=== PATIENT | female | born 1950 | race Caucasian/White ===

== ENCOUNTER 2019-06-19 13:52 | Outpatient (CLI) | payer MEDICARE, SELFPAY ==
--- NOTE | ~2019-06-19 | MM_ITS ---
EXAMINATION: MM screening alcon BI w sam HISTORY: Screening mammogram TECHNIQUE: Craniocaudal and mediolateral oblique 3-D tomosynthesis images were obtained and synthetic 2-D images were generated. CAD analysis was submitted and interpreted. COMPARISON: No prior mammogram is available for comparison at this institution. BREAST PARENCHYMAL COMPOSITION: 1 FINDINGS: There is no evidence of suspicious mass, calcification, or architectural distortion to sugg est malignancy in either breast. There has been no suspicious interval change. IMPRESSION: 1. No mammographic evidence of malignancy. 2. Recommend routine screening mammography in one year. BI-RADS Category 1: Negative Reviewed, dictated and finalized at location A.
== END 2019-06-19 13:53 | disposition home or self-care (01) ==
PROVIDERS: PCP Internal Medicine; Visit Provider Internal Medicine
DX: Z12.31 Encounter for screening mammogram for malignant neoplasm of breast (principal)
CPT/HCPCS: 77063; 77067

== ENCOUNTER 2020-11-26 02:27 | Day surgery (SDC) | payer MEDICARE, SELFPAY ==
[2020-11-16 14:56] VITALS: BMI 40.8
[2020-11-26 06:07] VITALS: BP 137/80; PULSE 104; RESP 18; TEMP 35.9; O2SAT 98; BMI 40.1
[2020-11-26] MEDS: LACTATED RINGERS 1,000 ML 150 ML IV CONT (06:34)
[2020-11-26 06:36] LABS: Glucose Point of Care 126 mg/dl (65-105)
--- NOTE | 2020-11-26 07:18 | WPDANESEPPF ---
Anes - Initial Pre Proc Eval Procedure: Operation Date: 11/26/20 07:30 Proposed Procedures p Screening Colonoscopy - Jay Gonzales MD Date/Time: 11/26/20 07:18 Surgeon: Jay Gonzales MD Pre Op Diagnosis: hx of colon polyps Patient Data Age: 70 Gender: F Height: 1.63 m Weight: 106 kg Last Vital Signs Temp 96.6 F L 11/26/20 06:07 Pulse 104 H 11/26/20 06:07 Resp 18 11/26/20 06:07 BP 137/80 11/26/20 06:07 Pulse Ox 98 11/26/20 06:07 Allergies Allergy/AdvReac Type Severity Reaction Status Date / Time niacin Allergy Unknown Other Verified 11/26/20 06:20 niacinamide Allergy Unknown Other Verified 11/26/20 06:20 Home Medications Medication Instructions Recorded Confirmed Type aspirin 81 mg tablet,delayed 81 mg PO DAILY 02/19/19 11/26/20 History release multivit with 1 tablet PO DAILY 02/19/19 11/26/20 History filomkuw-dyke-IX-lutein 8 mg iron-400 mcg-300 mcg tablet brimonidine 0.2 %-timolol 0.5 % 1 drop EACH EYE Q12H 06/18/19 11/26/20 History eye drops lorazepam 0.5 mg tablet 0.5 mg PO TID PRN #90 tablet 06/18/19 11/26/20 Rx nystatin 100,000 unit/gram topical 1 applic TOPICAL BID #15 gm 08/07/19 11/26/20 Rx cream triamcinolone acetonide 0.1 % 1 applic TOPICAL BID #15 gm 08/07/19 11/26/20 Rx topical cream rosuvastatin 10 mg tablet 10 mg PO DAILY #90 tablet 12/11/19 11/26/20 Rx subcutaneous insulin pump #1 each 12/29/19 11/26/20 History icosapent ethyl 1 gram capsule 2 g PO BID 02/13/20 11/26/20 History furosemide 40 mg tablet 40 mg PO QAM #90 tablet 03/16/20 11/26/20 Rx olmesartan 40 mg tablet 40 mg PO DAILY #90 tablet 03/17/20 11/26/20 Rx Contour Next Test Strips #400 ea NS 04/05/20 11/26/20 Rx Microlet Lancet #400 ea NS 04/05/20 11/26/20 Rx glucosamine sulfate 500 mg tablet 2,000 mg PO BID tablet 04/05/20 11/26/20 History betamethasone dipropionate 0.05 % 1 applic TOPICAL BID #15 gm 04/30/20 11/26/20 Rx topical cream insulin lispro 100 unit/mL 150 unit CONTINUOUS SUBCUTANEOUS 05/17/20 11/26/20 Rx subcutaneous solution INFUSION DAILY #30 ml Ozempic 0.5 mg SUB-Q WEEKLY 30 Days #1.5 09/21/20 11/26/20 Rx ml NS potassium chloride 10 mEq See Rx Instructions .ROUTE 10/11/20 11/26/20 Rx capsule,extended release .COMPLEX #90 cap metformin 1,000 mg tablet See Rx Instructions .ROUTE 11/18/20 11/26/20 Rx .COMPLEX #225 tablet Laboratory Tests 11/26/20 06:28 POC Capillary Glucose 126 mg/dl H mg/dl (65-105) Patient hx anesthesia problems: none Family hx anesthesia problems: none PMFSH Past Medical History Medical History (Updated 08/18/20 @ 10:00 by Effie Ludwig MD) Abnormal Pap smear of cervix Allergies Anxiety Benign essential hypertension Body mass index (BMI) 40.0-44.9, adult Colon cancer screening Encounter for Medicare annual wellness exam Encounter for routine adult health examination without abnormal findings Encounter for screening mammogram for malignant neoplasm of breast Glaucoma Hx of colonic polyps Lymphedema On buttermaker drug therapy Stasis dermatitis Type 2 diabetes mellitus without complication, with long-term current use of insulin UTI (urinary tract infection) Surgical History Surgical History Hx of cataract surgery Hyperlipidemia Family History Family History Mother Family history of lung disease Family history of chronic obstructive pulmonary disease Father Family history of heart disease in male family member before age 55 Family history of cardiovascular disease Grandparent Cerebrovascular accident Family history of dementia Other Family history of arthritis Family history of elevated blood lipids Family history of mental disorder Family history of obesity Social History Social History Smoking status: Never smoker Alcohol i
--- NOTE | 2020-11-26 07:20 | WPDGICN ---
Assessment and Plan Assessment and plan (1) Colon cancer screening: Code(s): Z12.11 - Encounter for screening for malignant neoplasm of colon Status: Acute Assessment and Plan: Patient presents for screening colonoscopy has been 9 years since last exam. (2) Hx of colonic polyps: Code(s): Z86.010 - Personal history of colonic polyps Status: Acute Assessment and Plan: Patient has of history of a villous adenomatous colon polyp in 2001. Plan is for surveillance colonoscopy at this time. (3) Body mass index (BMI) 40.0-44.9, adult: Code(s): Z68.41 - Body mass index [BMI]40.0-44.9, adult Status: Acute Assessment and Plan: Patient is significantly overweight. Plan is for patient to count calories weight loss and is encouraged. GI Consult Note Consult date/time: 11/26/20 07:20 HPI: Dawn Whitehead is a 70 year old female Presents for screening colonoscopy. Patient reports having had a villous adenomatous colon polyp in 2001. She has had several follow-up examination since that time. Most recent colonoscopy 2011. Patient reports that her current weight appetite bowel movements are normal. She denies abdominal pain. She has had no bleeding. Family history is noncontributory. Review of Systems Review of Systems: All systems reviewed & are unremarkable except as noted in HPI and below PMFSH Past Medical History Medical History (Updated 08/18/20 @ 10:00 by Effie Ludwig MD) Abnormal Pap smear of cervix Allergies Anxiety Benign essential hypertension Body mass index (BMI) 40.0-44.9, adult Colon cancer screening Encounter for Medicare annual wellness exam Encounter for routine adult health examination without abnormal findings Encounter for screening mammogram for malignant neoplasm of breast Glaucoma Hx of colonic polyps Lymphedema On remote computer terminal operator drug therapy Stasis dermatitis Type 2 diabetes mellitus without complication, with long-term current use of insulin UTI (urinary tract infection) Surgical History Surgical History Hx of cataract surgery Hyperlipidemia Family History Family History Mother Family history of lung disease Family history of chronic obstructive pulmonary disease Father Family history of heart disease in male family member before age 55 Family history of cardiovascular disease Grandparent Cerebrovascular accident Family history of dementia Other Family history of arthritis Family history of elevated blood lipids Family history of mental disorder Family history of obesity Social History Social History Smoking status: Never smoker Alcohol intake: never Substance use: never Substance use type: does not use Living arrangements: alone Spiritual care concerns: No Meds Home Medications and Allergies Home Medications Medication Instructions Recorded Confirmed Type aspirin 81 mg tablet,delayed 81 mg PO DAILY 02/19/19 11/26/20 History release multivit with 1 tablet PO DAILY 02/19/19 11/26/20 History fmesubfv-yrrs-KE-lutein 8 mg iron-400 mcg-300 mcg tablet brimonidine 0.2 %-timolol 0.5 % 1 drop EACH EYE Q12H 06/18/19 11/26/20 History eye drops lorazepam 0.5 mg tablet 0.5 mg PO TID PRN #90 tablet 06/18/19 11/26/20 Rx nystatin 100,000 unit/gram topical 1 applic TOPICAL BID #15 gm 08/07/19 11/26/20 Rx cream triamcinolone acetonide 0.1 % 1 applic TOPICAL BID #15 gm 08/07/19 11/26/20 Rx topical cream rosuvastatin 10 mg tablet 10 mg PO DAILY #90 tablet 12/11/19 11/26/20 Rx subcutaneous insulin pump #1 each 12/29/19 11/26/20 History icosapent ethyl 1 gram capsule 2 g PO BID 02/13/20 11/26/20 History furosemide 40 mg tablet 40 mg PO QAM #90 tablet 03/16/20 11/26/20 Rx olmesartan 40 mg tablet 40 mg PO DAILY #90 tablet 03/17/20
[2020-11-26 07:46] VITALS: BP 103/53; PULSE 90; RESP 22; O2SAT 98
[2020-11-26 07:55] VITALS: BP 114/59; PULSE 92; RESP 22; O2SAT 98
[2020-11-26 08:05] VITALS: BP 100/70; PULSE 86; RESP 22; O2SAT 98
== END 2020-11-26 08:15 | disposition home or self-care (01) ==
PROVIDERS: PCP Internal Medicine; Visit Provider Internal Medicine Gastroenterology
PROC: 0DJD8ZZ Inspection of Lower Intestinal Tract, Via Natural or Artificial Opening Endoscopic (ICD-10-PCS; CPT 45378; principal; 2020-11-26 07:30)
DX: Z12.11 Encounter for screening for malignant neoplasm of colon (principal); K63.5 Polyp of colon; I10 Essential (primary) hypertension; I87.2 Venous insufficiency (chronic) (peripheral); I89.0 Lymphedema, not elsewhere classified; E11.9 Type 2 diabetes mellitus without complications; K64.8 Other hemorrhoids; H40.9 Unspecified glaucoma; F41.9 Anxiety disorder, unspecified; Z86.010 Personal history of colon polyps
CPT/HCPCS: 45385; 82948; 88305; J2704; J7120

== ENCOUNTER 2021-06-10 13:20 | Outpatient (CLI) | payer MEDICARE, SELFPAY ==
--- NOTE | ~2021-06-10 | XR_ITS ---
EXAMINATION: XR knee RT 3V DATE: 06/10/2021 13:56 INDICATION: Right knee pain. TECHNIQUE: 3 views of right knee with weightbearing were obtained. COMPARISON: None. FINDINGS: Bone alignment is normal. No fracture. There is mild tricompartmental osteoarthritis. No kn ee joint effusion. IMPRESSION: 1. Mild right knee osteoarthritis. Reviewed, dictated and finalized at location A. WORKER
== END 2021-06-10 13:21 | disposition home or self-care (01) ==
LOC: ANHIMG 13:26
PROVIDERS: PCP Internal Medicine; Visit Provider Internal Medicine
DX: M17.11 Unilateral primary osteoarthritis, right knee (principal)
CPT/HCPCS: 73562

== ENCOUNTER 2021-09-14 13:33 | Outpatient (CLI) | payer MEDICARE, SELFPAY ==
--- NOTE | ~2021-09-14 | MM_ITS ---
EXAMINATION: MM screening alcon BI w sam HISTORY: Screening TECHNIQUE: Craniocaudal and mediolateral oblique 3-D tomosynthesis images were obtained and synthetic 2-D images were generated. CAD analysis was submitted and interpreted. COMPARISON: Comparison to multiple prior studies sequentially, with oldest reviewed study dated 06/18. BREAST PARENCHYMAL COMPOSITION: There are scattered areas of fibroglandular density. FINDINGS: There is no evidence of suspicious mass, calcification, or architectural distortion to sugg est malignancy in either breast. There has been no suspicious interval change. IMPRESSION: 1. No mammographic evidence of malignancy. 2. Recommend routine screening mammography in one year. BI-RADS Category 1: Negative Reviewed, dictated and finalized at location D.
== END 2021-09-14 13:34 | disposition home or self-care (01) ==
LOC: ANHIMG 13:34
PROVIDERS: PCP Internal Medicine; Visit Provider Internal Medicine
DX: Z12.31 Encounter for screening mammogram for malignant neoplasm of breast (principal)
CPT/HCPCS: 77063; 77067

== ENCOUNTER 2022-02-20 07:41 | Outpatient (CLI) | payer MEDICARE, SELFPAY ==
--- NOTE | ~2022-02-20 | DEXA_ITS ---
Bone Density Report Name: JOSE ZENG Age: 71 Sex: Female Ethnicity: White Date of : 1950 Indication: postmenopausal; screening for osteoporosis; Referring Provider: HERIBERTO LEMUS Study: Bone densitometry was performed. Exam Date: February 20, 2022 Accession number: [id number] Bone Density: Region BMD T-score Z-score Classification AP Spine(L1-L4) 0.915 -1.2 1.0 Osteopenia Femoral Neck (Right) 0.770 -0.7 1.2 Normal Total Hip (Right) 0.872 -0.6 1.0 Normal World Health Organization criteria for BMD impression classify patients as: Normal (T-score at or above -1.0), Osteopenia (T-score between -1.0 and -2.5), or Osteoporosis (T-score at or below -2.5). 10-year Fracture Risk(1): Major Osteoporotic Fracture 7.5% Hip Fracture 0.7% Reported Risk Factors: [place] (), Neck BMD=0.770, BMI=39.2 (1) FRAX(R) Version 3.08. Fracture probability calculated for an untreated patient. Fracture probability may be lower if the patient has received treatment. Clinical Information Provided by Patient: Patient maximum height was 64 Menopause Age: 46 No regular weight bearing exercise Drinks caffeinated beverages Onset of menses at age 10 Number of children 0 Impression: The patient has low bone mass, based on the Total Spine T-score. The patient has an estimated ten-year risk of hip fracture of 0.7% and an estimated ten-year risk of major fracture of 7.5%, based on the WHO FRAX algorithm. Discussion: BONE DENSITY IS LOW AT ONE OR MORE SKELETAL SITES. This patient's lowest T-score is low at one or more skeletal sites. It meets the World Health Organization's (WHO) criteria for ?low bone mass? (T-score between -1.0 and -2.5). The patient's 10-year risk of fracture as calculated by FRAX is less than the threshold where pharmacological therapy is recommended by the National Osteoporosis Foundation (NOF). However, all treatment decisions require clinical judgment and consideration of individual patient factors, including patient preferences, comorbidities, previous drug use, risk factors not captured in the FRAX model (e.g., frailty, falls, vitamin D deficiency, increased bone turnover, interval significant decline in bone density) and possible under or overestimation of fracture risk by FRAX. The patient should follow a healthful lifestyle (good nutrition with adequate calcium and vitamin D, and appropriate weight-bearing exercise). Follow-Up: Consider repeating this study in 2 to 3 years to reassess this patient's status, or sooner if there is some new clinical indication. Reported by: DORINDA on 02/20/2022 8:07:00 AM. Reviewed, dictated and finalized at location A.
== END 2022-02-20 07:42 | disposition home or self-care (01) ==
LOC: ANHIMG 07:41
PROVIDERS: PCP Internal Medicine; Visit Provider Internal Medicine
DX: Z78.0 Asymptomatic menopausal state (principal); M85.88 Other specified disorders of bone density and structure, other site
CPT/HCPCS: 77080

== ENCOUNTER 2022-11-09 09:32 | Outpatient (CLI) | payer MEDICARE, SELFPAY ==
--- NOTE | 2022-11-09 10:03 | ECHO_ITS ---
Patient Info Name: Dawn Whitehead Age: 72 years : 1950 Gender: Female Ht: 64 in Wt: 227 lbs BSA: 2.21 m2 HR: 97 bpm BP: 135 / 74 mmHg Technical Quality: Fair Exam Date: 11/09/2022 11:14 AM Exam Location: [facility] Patient Status: Outpatient Admit Date: 11/09/2022 Staff Ordering Physician: Eb Faust MD Legal Financial Specialist: Kelly Kirkpatrick RDCS Attending Provider: Eb Faust MD Referring Physician: Christianne SMITH; Exam Type: CA echo doppler color flow Study Info Indications I10 - Essential (primary) hypertension Complete two-dimensional, color flow and Doppler transthoracic echocardiogram is performed. Summary 1. Complete two-dimensional, color flow and Doppler transthoracic echocardiogram is performed. 2. Left ventricular chamber dimension is normal. 3. Left ventricular systolic function is normal, estimated at 60-65%. 4. There is mild concentric increased left ventricular wall thickness. 5. The left ventricular diastolic function is grade I diastolic dysfunction. 6. E/e' 10 is mildly elevated. 7. There is mild aortic valve sclerosis. 8. There is trace tricuspid valve regurgitation. 9. No pulmonary hypertension, estimated pulmonary arterial systolic pressure is 15 mmHg. Left Ventricle E/e' 10 is mildly elevated. Left ventricular chamber dimension is normal. Left ventricular systolic function is normal, estimated at 60-65%. There is mild concentric increased left ventricular wall thickness. The left ventricular diastolic function is grade I diastolic dysfunction. Right Ventricle Right ventricular chamber dimension is normal. Right ventricular systolic function is normal. Left Atria Left atrial chamber dimension is normal. Right Atria Right atrial chamber dimension is normal. Aortic Valve The aortic valve is probable trileaflet. There is mild aortic valve sclerosis. There is no aortic valve stenosis. There is no aortic valve regurgitation. Pulmonic Valve There is no pulmonic regurgitation. Mitral Valve There is no mitral valve stenosis. There is no mitral valve regurgitation. Tricuspid Valve There is trace tricuspid valve regurgitation. No pulmonary hypertension, estimated pulmonary arterial systolic pressure is 15 mmHg. Pericardium/Pleural There is no pericardial effusion. Inferior Vena Cava Normal inferior vena cava with >50% collapse upon inspiration consistent with normal right atrial pressure, 5 mmHg. Aorta The aortic root size at the sinus of Valsalva is normal. Left Ventricular Outflow Tract Name Value Normal LVOT 2D LVOT Diameter 1.9 cm LVOT Doppler LVOT Peak Gradient 9 mmHg LVOT Mean Gradient 6 mmHg LVOT VTI 34 cm LVOT VTI/AV VTI Ratio 0.8 LVOT Stroke Volume 93 ml Pulmonic Valve Name Value Normal RVOT Doppler RVOT Peak Gradient 2 mmHg
== END 2022-11-09 09:33 | disposition home or self-care (01) ==
LOC: ANHCARD 09:33
PROVIDERS: PCP Internal Medicine; Visit Provider Internal Medicine
DX: R79.9 Abnormal finding of blood chemistry, unspecified (principal); I10 Essential (primary) hypertension
CPT/HCPCS: 93306

== ENCOUNTER 2024-01-24 01:00 | Day surgery (SDC) | payer MEDICARE, SELFPAY ==
[2024-01-08 15:13] VITALS: BMI 38.3
[2024-01-24 08:14] VITALS: BP 146/79; PULSE 103; RESP 22; TEMP 36.3; O2SAT 97; BMI 38.2
[2024-01-24] MEDS: LACTATED RINGERS 1,000 ML 150 ML IV CONT (08:17)
[2024-01-24 08:33] LABS: Glucose Point of Care 145 mg/dl (65-105)
--- NOTE | 2024-01-24 08:39 | P.PNAN_ITS ---
Anes - Initial Pre Proc Eval Procedure: Operation Date: 01/24/24 09:00 Proposed Procedures p Esophagogastroduodenoscopy & Colonoscopy - Ashok Acuna MD Date/Time: 01/24/24 08:39 Surgeon: Ashok Acuna MD Pre Op Diagnosis: anemia, fecal abnormalities Patient Data Age: 73 Gender: F Height: 1.63 m Weight: 101.2 kg Last Vital Signs Temp 36.3 C L 01/24/24 08:14 Pulse 103 H 01/24/24 08:14 Resp 22 H 01/24/24 08:14 BP 146/79 H 01/24/24 08:14 Pulse Ox 97 01/24/24 08:14 O2 Del Method Room Air 01/24/24 08:14 Allergies Allergy/AdvReac Type Severity Reaction Status Date / Time niacin Allergy Unknown Other Verified 01/24/24 08:12 niacinamide Allergy Unknown Other Verified 01/24/24 08:12 Penicillins AdvReac Intermediate Rash Verified 01/24/24 08:12 Home Medications Medication Instructions Recorded Confirmed Type aspirin 81 mg tablet,delayed 81 mg PO DAILY 02/19/19 01/24/24 History release (Adult Low Dose Aspirin) qfrxzimm-nrez-tzcb 8 mg-folic 400 1 tablet PO DAILY 02/19/19 01/24/24 History mcg-K 50 mcg-lutein 300 mcg tablet (Centrum Silver Women) brimonidine 0.2 %-timolol 0.5 % 1 drop ophthalmic (eye) Q12H 06/18/19 01/24/24 History eye drops (Combigan) nystatin 100,000 unit/gram topical 1 applic topical BID #15 grams 08/07/19 01/24/24 Rx cream triamcinolone acetonide 0.1 % 1 applic topical BID #15 grams 08/07/19 01/24/24 Rx topical cream glucosamine sulfate 500 mg tablet 2,000 mg PO BID 04/05/20 01/24/24 History mecobalamin (vitamin B12) 1,000 1,000 mcg sublingual DAILY 09/15/21 01/24/24 History mcg disintegrating tablet,sublingual subcutaneous insulin pump (MiniMed 01/19/22 01/24/24 History 770G Insulin Pump) metformin 1,000 mg tablet See Rx Instructions .Route 04/05/22 01/24/24 Rx .COMPLEX #225 tabs Microlet Lancet (lancets) #400 ea 09/18/22 01/24/24 Rx betamethasone dipropionate 0.05 % See Rx Instructions .Route 02/26/23 01/24/24 Rx topical cream .COMPLEX #15 grams semaglutide 2 mg/dose (8 mg/3 mL) 2 mg (0.75 mL) subcut WEEKLY #9 mL 03/14/23 01/24/24 Rx subcutaneous pen injector (Ozempic) cholecalciferol (vitamin D3) 50 50 mcg PO DAILY 07/11/23 01/24/24 History mcg (2,000 unit) capsule rosuvastatin 10 mg tablet 10 mg PO DAILY #90 tabs 08/07/23 01/24/24 Rx potassium chloride 10 mEq See Rx Instructions .Route 08/20/23 01/24/24 Rx capsule,extended release .COMPLEX #90 caps olmesartan 40 mg tablet See Rx Instructions .Route 08/28/23 01/24/24 Rx .COMPLEX #90 tabs furosemide 40 mg tablet See Rx Instructions .Route 10/25/23 01/24/24 Rx .COMPLEX #90 tabs ferrous sulfate 325 mg (65 mg 325 mg PO BID 12/10/23 01/24/24 History iron) tablet blood sugar diagnostic (Accu-Chek #100 strips 12/12/23 01/24/24 Rx Guide test strips) clorazepate dipotassium 3.75 mg See Rx Instructions .Route TID #35 12/18/23 01/24/24 Rx tablet tabs fluconazole 150 mg tablet 150 mg PO DAILY PRN yeast #2 tabs 12/18/23 01/24/24 Rx insulin lispro 100 unit/mL See Rx Instructions .Route 01/01/24 01/24/24 Rx subcutaneous solution (Humalog .COMPLEX #30 mL U-100 Insulin) Laboratory Tests 01/24/24 08:28 POC Capillary Glucose 145 H mg/dl (65-105) Patient hx anesthesia problems: none Family hx anesthesia problems: none Results Review: All pre-operative results and documents have been reviewed as part of the pre- operative evaluation. [facility] Past Medical History Medical History Abnormal finding of blood chemistry Abnormal Pap smear of cervix Allergies Anxiety Benign essential hypertension BMI 38.0-38.9,adult BMI 39.0-39.9,adult Body mass index (BMI) 40.0-44.9, adult Bone mass BPPV (benign paroxysmal positional vertigo) Colon cancer screening Encounter for Medicare annual wellness exam Encounter for routine adult health examination with abnormal findings Encounter for routine adult health examination without abnormal findings Glaucoma Guaiac positive stools History of colon polyps Hx of cataract Hx of colonic polyps Lymphedema Mass of right lower extremity On booking clerk drug therapy Pedal edema Rhus dermatitis Right knee pain Stasis dermatitis Trigger finger, left ring finger Type 2 diabetes mellitus without complication, with long-term current use of insulin UTI (urinary tract infection) Vitamin B12 deficiency Vitamin D deficiency Yeast infection involving the vagina and surrounding area Surgical History Surgical History History of tooth extraction History of total left hip replacement Hx of cataract surgery Hyperlipidemia S/P LEEP Status post laser cataract surgery of both eyes Family History Family History Mother Family history of lung disease Family history of chronic obstructive pulmonary disease Father Family history of heart disease in male family member before age 55 Family history of cardiovascular disease Grandparent Cerebrovascular accident Family history of dementia Other Family history of arthritis Family history of elevated blood lipids Family history of mental disorder Family history of obesity Social History Social History Smoking status: Never smoker Second hand tobacco smoke exposure: No Alcohol intake: never Substance use: never Substance use type: does not use Lack of Transportation: No Lack of Food: Never True Current Housing: I Have Housing Concerned About Future Housing: No Difficulty Paying Gas/Electric Bills: No Difficulty Paying for Meds: No Currently Unemployed: No Education: Master's Degree or Higher Difficulty w/ Childcare or Family Care: No Living arrangements: alone Gender identity (if verbalized by the patient): Female Spiritual care concerns: No Anes - Eval Final PreProcedure Day of Procedure 01/24/24 08:39 Patient weight: obese Heart: regular rate and rhythm Lungs: clear to auscultation Airway: Mallampati scale class II Neurological: alert and oriented Last oral intake: >/= 8 hours ASA classification: III Emergent: no Anesthetic plan: proceed Anesthesia type and monitoring: general GIVS and standard monitoring Results Review: All pre-operative results and documents have been reviewed as part of the pre- operative evaluation. Informed Consent: The patient's anesthetic plan and its attendant risks and benefits were discussed with the patient/family/POA. Questions were solicited and answers provided to the satisfaction of the patient/family/POA.
--- NOTE | 2024-01-24 09:30 | P.HP_ITS ---
H&P: HPI History of Present Illness Date/Time: 01/24/24 09:30 Chief Complaint: Iron deficiency anemia-colon polyps Narrative: the patient was recently found to have iron deficiency anemia:On most recent labs 12/06/2023 hemoglobin of 10.3, hematocrit 33.1 MCV of 82 previously no history of anemia in the past. Iron 33, TIBC 307, iron saturation 11% ferritin 18. Last colonoscopy 2020, showed colon polyps. Review of Systems Review of Systems: All systems reviewed & are unremarkable except as noted in HPI and below PMFSH Past Medical History Medical History Abnormal finding of blood chemistry Abnormal Pap smear of cervix Allergies Anxiety Benign essential hypertension BMI 38.0-38.9,adult BMI 39.0-39.9,adult Body mass index (BMI) 40.0-44.9, adult Bone mass BPPV (benign paroxysmal positional vertigo) Colon cancer screening Encounter for Medicare annual wellness exam Encounter for routine adult health examination with abnormal findings Encounter for routine adult health examination without abnormal findings Glaucoma Guaiac positive stools History of colon polyps Hx of cataract Hx of colonic polyps Lymphedema Mass of right lower extremity On exterminator helper termite drug therapy Pedal edema Rhus dermatitis Right knee pain Stasis dermatitis Trigger finger, left ring finger Type 2 diabetes mellitus without complication, with long-term current use of insulin UTI (urinary tract infection) Vitamin B12 deficiency Vitamin D deficiency Yeast infection involving the vagina and surrounding area Surgical History Surgical History History of tooth extraction History of total left hip replacement Hx of cataract surgery Hyperlipidemia S/P LEEP Status post laser cataract surgery of both eyes Family History Family History Mother Family history of lung disease Family history of chronic obstructive pulmonary disease Father Family history of heart disease in male family member before age 55 Family history of cardiovascular disease Grandparent Cerebrovascular accident Family history of dementia Other Family history of arthritis Family history of elevated blood lipids Family history of mental disorder Family history of obesity Social History Social History Smoking status: Never smoker Second hand tobacco smoke exposure: No Alcohol intake: never Substance use: never Substance use type: does not use Lack of Transportation: No Lack of Food: Never True Current Housing: I Have Housing Concerned About Future Housing: No Difficulty Paying Gas/Electric Bills: No Difficulty Paying for Meds: No Currently Unemployed: No Education: Master's Degree or Higher Difficulty w/ Childcare or Family Care: No Living arrangements: alone Gender identity (if verbalized by the patient): Female Spiritual care concerns: No Meds Home Medications and Allergies Home Medications Medication Instructions Recorded Confirmed Type aspirin 81 mg tablet,delayed 81 mg PO DAILY 02/19/19 01/24/24 History release (Adult Low Dose Aspirin) [id number] 8 mg-folic 400 1 tablet PO DAILY 02/19/19 01/24/24 History mcg-K 50 mcg-lutein 300 mcg tablet (Centrum Silver Women) brimonidine 0.2 %-timolol 0.5 % 1 drop ophthalmic (eye) Q12H 06/18/19 01/24/24 History eye drops (Combigan) nystatin 100,000 unit/gram topical 1 applic topical BID #15 grams 08/07/19 01/24/24 Rx cream triamcinolone acetonide 0.1 % 1 applic topical BID #15 grams 08/07/19 01/24/24 Rx topical cream glucosamine sulfate 500 mg tablet 2,000 mg PO BID 04/05/20 01/24/24 History mecobalamin (vitamin B12) 1,000 1,000 mcg sublingual DAILY 09/15/21 01/24/24 History mcg disintegrating tablet,sublingual subcutaneous insulin pump (MiniMed 01/19/22 01/24/24 History 770G Insulin Pump) metformin 1,000 mg tablet See Rx Instructions .Route 04/05/22 01/24/24 Rx .COMPLEX #225 tabs Microlet Lancet (lancets) #400 ea 09/18/22 01/24/24 Rx betamethasone dipropionate 0.05 % See Rx Instructions .Route 02/26/23 01/24/24 Rx topical cream .COMPLEX #15 grams semaglutide 2 mg/dose (8 mg/3 mL) 2 mg (0.75 mL) subcut WEEKLY #9 mL 03/14/23 01/24/24 Rx subcutaneous pen injector (Ozempic) cholecalciferol (vitamin D3) 50 50 mcg PO DAILY 07/11/23 01/24/24 History mcg (2,000 unit) capsule rosuvastatin 10 mg tablet 10 mg PO DAILY #90 tabs 08/07/23 01/24/24 Rx potassium chloride 10 mEq See Rx Instructions .Route 08/20/23 01/24/24 Rx capsule,extended release .COMPLEX #90 caps olmesartan 40 mg tablet See Rx Instructions .Route 08/28/23 01/24/24 Rx .COMPLEX #90 tabs furosemide 40 mg tablet See Rx Instructions .Route 10/25/23 01/24/24 Rx .COMPLEX #90 tabs ferrous sulfate 325 mg (65 mg 325 mg PO BID 12/10/23 01/24/24 History iron) tablet blood sugar diagnostic (Accu-Chek #100 strips 12/12/23 01/24/24 Rx Guide test strips) clorazepate dipotassium 3.75 mg See Rx Instructions .Route TID #35 12/18/23 01/24/24 Rx tablet tabs fluconazole 150 mg tablet 150 mg PO DAILY PRN yeast #2 tabs 12/18/23 01/24/24 Rx insulin lispro 100 unit/mL See Rx Instructions .Route 01/01/24 01/24/24 Rx subcutaneous solution (Humalog .COMPLEX #30 mL U-100 Insulin) Allergies Allergy/AdvReac Type Severity Reaction Status Date / Time niacin Allergy Unknown Other Verified 01/24/24 08:12 niacinamide Allergy Unknown Other Verified 01/24/24 08:12 Penicillins AdvReac Intermediate Rash Verified 01/24/24 08:12 Vital Signs Vital Signs - 24 hr 01/24/24 08:14 Temperature 97.4 F L Pulse Rate 103 H Respiratory Rate 22 H Blood Pressure 146/79 H Pulse Oximetry 97 Oxygen Delivery Room Air Assessment and Plan Assessment and plan (1) JOSE (iron deficiency anemia): Code(s): D50.9 - Iron deficiency anemia, unspecified Status: Acute Assessment and Plan: The patient is deemed a good candidate for the procedures. Consent signed. Will proceed. (2) Hx of adenomatous colonic polyps: Code(s): Z86.010 - Personal history of colon polyps Status: Acute
--- NOTE | 2024-01-24 09:55 | SUR.OPER ---
Addendum entered by Arabella Oliva RN 01/24/24 10:03: Large, dark, purple area to buttock. Redness under abdominal fold. Original Note: Large, dark, purple area to buttock.
[2024-01-24 10:15] VITALS: BP 112/44; PULSE 112; RESP 24; O2SAT 100
[2024-01-24 10:25] VITALS: BP 111/57; PULSE 92; RESP 16; O2SAT 99
[2024-01-24 10:30] LABS: Glucose Point of Care 125 mg/dl (65-105)
--- NOTE | 2024-01-24 10:30 | SUR.PHASEII ---
blood glucose 125
[2024-01-24 10:35] VITALS: BP 119/62; PULSE 88; RESP 18; O2SAT 100
== END 2024-01-24 10:58 | disposition home or self-care (01) ==
PROVIDERS: PCP Internal Medicine; Referring Provider Nurse Practitioner; Visit Provider Internal Medicine Gastroenterology
PROC: 0DJ08ZZ Inspection of Upper Intestinal Tract, Via Natural or Artificial Opening Endoscopic (ICD-10-PCS; CPT 43235; principal; 2024-01-24 09:00)
DX: D12.8 Benign neoplasm of rectum (principal); K57.30 Diverticulosis of large intestine without perforation or abscess without bleeding; K29.50 Unspecified chronic gastritis without bleeding; D50.9 Iron deficiency anemia, unspecified; F41.9 Anxiety disorder, unspecified; I10 Essential (primary) hypertension; Z79.899 Other long term (current) drug therapy; E11.9 Type 2 diabetes mellitus without complications; E53.8 Deficiency of other specified B group vitamins; E55.9 Vitamin D deficiency, unspecified; E66.9 Obesity, unspecified; Z68.38 Body mass index [BMI] 38.0-38.9, adult; Z79.82 Long term (current) use of aspirin; Z79.84 Long term (current) use of oral hypoglycemic drugs; Z79.85 Long-term (current) use of injectable non-insulin antidiabetic drugs; Z79.4 Long term (current) use of insulin; Z98.890 Other specified postprocedural states; Z96.41 Presence of insulin pump (external) (internal); Z82.49 Family history of ischemic heart disease and other diseases of the circulatory system
CPT/HCPCS: 43239; 45385; 82948; 88305; J2003; J2704; J7120

== ENCOUNTER 2024-09-19 12:58 | Outpatient (CLI) | payer MEDICARE, SELFPAY ==
--- NOTE | ~2024-09-19 | MM_ITS ---
EXAMINATION: MM screening alcon BI w sam HISTORY: Screening TECHNIQUE: Craniocaudal and mediolateral oblique 3-D tomosynthesis images were obtained and synthetic 2-D images were generated. CAD analysis was submitted and interpreted. COMPARISON: Comparison to multiple prior studies sequentially, with oldest reviewed study dated 09/14. BREAST PARENCHYMAL COMPOSITION: Not dense: There are scattered areas of fibroglandular density. FINDINGS: There is no evidence of suspicious mass, calcification, or architectural distortion to sugg est malignancy in either breast. There has been no suspicious interval change. IMPRESSION: 1. No mammographic evidence of malignancy. 2. Recommend routine screening mammography in one year. BI-RADS Category 1: Negative Reviewed, dictated and finalized at location A.
--- NOTE | ~2024-09-19 | DEXA_ITS ---
Bone Density Report Name: JOSE ZENG Age: 74 Sex: Female Ethnicity: White Date of : 1950 Indication: postmenopausal; screening for osteoporosis; height loss; inflammatory bowel disease; prior fracture; Referring Provider: HERIBERTO LEMUS Study: Bone densitometry was performed. Exam Date: September 19, 2024 Accession number: [id number] Bone Density: Region BMD T-score Z-score Classification AP Spine(L1-L4) 0.964 -0.8 1.6 Normal World Health Organization criteria for BMD impression classify patients as: Normal (T-score at or above -1.0), Osteopenia (T-score between -1.0 and -2.5), or Osteoporosis (T-score at or below -2.5). Clinical Information Provided by Patient: Have had a previous hip or vertebral fracture Has had a low trauma fracture Has used the following medications: Vitamin D, multi Has the following medical conditions: Inflammatory bowel diseases Patient maximum height was 64 Menopause Age: 48 No regular weight bearing exercise Drinks caffeinated beverages Onset of menses at age 12 Number of children 0 Impression: The patient has normal bone mass. The patient has risk factors, including: previous fracture. Discussion: INCREASED RISK OF FRACTURE DUE TO HISTORY OF FRACTURE. The patient's previous fracture puts the patient at high risk of a future fracture. In untreated patients, the risk of osteoporotic fracture increases approximately two-fold for each 1.0 SD decrease in T-score. Low bone density is not the only risk factor for fracture; also consider factors such as patient's age, frailty or poor health, risk of falling, risk of injury, previous osteoporotic fracture, family history of osteoporosis, cigarette smoking, low body weight, etc. Not everyone with a low trauma fracture has osteoporosis; osteomalacia and other metabolic bone disorders should also be considered. Patients who have osteoporosis should be evaluated for specific diseases and conditions (secondary causes) that may cause or contribute to bone loss and fracture risk. National Osteoporosis Foundation (NOF) recommends pharmacologic intervention for patients with a prior hip or vertebral fracture regardless of BMD T-score. The patient should follow a healthful lifestyle (good nutrition with adequate calcium and vitamin D, and appropriate weight-bearing exercise). Follow-Up: Consider a repeat BMD and Vertebral Fracture Assessment (VFA) exam in 2 years or sooner if medically necessary, to reassess this patient's status. Reported by: MAURICE on 09/19/2024 1:46:00 PM. Reviewed, dictated and finalized at location A.
== END 2024-09-19 12:59 | disposition home or self-care (01) ==
PROVIDERS: PCP Internal Medicine; Visit Provider Internal Medicine
DX: Z12.31 Encounter for screening mammogram for malignant neoplasm of breast (principal); Z78.0 Asymptomatic menopausal state
CPT/HCPCS: 77063; 77067; 77080